=== PATIENT | male | born 1945 | race Caucasian/White ===

== ENCOUNTER → 2019-10-04 | Outpatient (CLI) | payer OTHER, BC ==
[~2019-10-04] VITALS: Ht 180.3 cm; Wt 94.8 kg
[~2019-10-04] MED LIST: ACTOS 45 MG45 M1 PO; AZOPT5 ML OPHTHALMIC; B12INJ PO; BACTROBAN NASAL1 GM; COUMADIN PO; COZAAR 25MG TAB25 M1 PO; FERREX 150150 MG PO; FISH OIL + D31 EACH PO; FISHOIL PO; GLUCOPHAGE XR500 MG PO; GLUCOPHAGE500 MG PO; GLUCOTROL5 MG PO; GLUCOVANCE 5-51 EACH; GLUCOVANCE 5-51 EACH PO; HYDROCODONE-AP1 EA10 PO; JANUVIA100 MG PO; LATANOPROST 0.2.5 ML OPHTHALMIC; LO-DOSE ASPIRIN81 M1 PO; LORTAB 5 MG/5001 TAB; METFORMIN HCL500 MG PO; NORCO 5-325 TA1 EACH PO; PERCOCET 5-3251 EACH PO; PRADAXA150 MG PO; PRAVACHOL80 MG PO; TOPROL XL50 MG PO; VITAMIN C + RO500 MG PO; VITAMIN D31000 UNI2 PO; VITCB500GO PO; ZOFRAN4 MG PO
[2019-10-04 07:25] VITALS: BP 125/87
--- NOTE | 2019-10-04 08:09 | EKG ---
[facility] [place] [address] ELECTROCARDIOGRAM REPORT Name: SALMA ERNST Room #: REG [facility]#: [id number] Admission: 10/04/19 Attend Phys: Blue Wright MD, Discharge: Date of : 41 Report #: [id number] THIS REPORT FOR: cc: Julio Sandy MD, Christopher B. MD Lundgren,Blue Johns MD [facility] ~ THIS REPORT FOR: //name// [facility] Test Date: 2019-10-04 Test Time: 07:22:39 Pat Name: SALMA ERNST Department: Room: Gender: Fisher Hoop Net: Rachel TERRAZAS : 1945 Requested By: Blue Wright Order Number: [id number] MD: Blue Wright Measurements Intervals Jeddo Rate: 87 P: [place]: QRS: 174 QRSD: 136 T: -21 QT: 437 QTc: 526 Interpretive Statements Atrial fibrillation RBBB and LPFB Compared to ECG 07/17/2011 07:11:17 Left posterior fascicular block now present Right bundle-branch block now present Myocardial infarct finding no longer present Electronically Signed On 10-04-2019 8:07:56 CDT by Blue Wright [email or web address] <ELECTRONICALLY SIGNED> By: Blue Wright MD, [facility] 10/04/19806 1 1 Blue Wright MD, FAC /EPI
--- NOTE | 2019-10-04 09:32 | CATHLAB ---
[facility] [place] [address] INVASIVE PROCEDURE REPORT Name: SALMA ERNST Room #: REG SARAH Tahir.#: [id number] Admission: 10/04/19 Attend Phys: Blue Wright MD, Discharge: Date of : 41 Report #: [id number] THIS REPORT FOR: cc: Julio Sandy MD, Christopher B. MD Lundgren, Craig H. MD [facility] ~ APPROVED REPORT Study performed: 10/04/2019 08:00:10 Patient Details Patient Status: Out-Patient Room #: The patient is a 74 year-old male Event Personnel Blue Wright Bean Roaster, Jackie Castillo RTRachel, NOVELTY TWISTER TENDER Monitor, Leila Jensen RN RN, Kateryna Hernandes Procedures Performed Art Access - R femoral artery* Left Heart Cath Coronaries, Bypass Grafts [id number] LHCCORCABG 10597 Initial Mod Sed Same Phys/QHP Gr5y [id number] 51504 Mod Sed Same Phys/QHP Ea 278040 Hemostasis w/ Mynx Indication Positive stress test Procedure Narrative The Right Groin^ was infiltrated with 1% Lidocaine subcutaneous anesthesia. A PINNACLE 6FR Sheath #[id number] sheath was inserted into the RFA^. Coronary angiography was performed using coronary diagnostic catheters. The right coronary system was accessed and visualized with a JR4 catheter. The left coronary system was accessed and visualized with a JL4 catheter. The left ventricle was accessed and visualized with a angled pigtail catheter. Left ventricular/Aortic Valve gradient assessed via catheter pullback. Left ventriculogram was performed in 30 degree projection. Closure device was deployed with a 6 Fr MYNXGRIP 6/7F #[id number]. The patient tolerated the procedure well and there were no complications associated with the procedure. There was no hematoma. Intraoperative Conscious Sedation Sedation start time: 08:12 Case end Time: [facility] [place] [address] [place] [address] INVASIVE PROCEDURE REPORT Name: SALMA ERNST Room #: REG Amy#: [id number] Admission: 10/04/19 Attend Phys: Blue Wright, Discharge: Date of : 41 Report #: [id number] 08:57 Fentanyl 50 mcg Versed 1 mg Fluoro Time: 6.25 minutes Dose: DAP 9750.00 cGycm2 1181 mGy Contrast Type and Amount: Omnipaque 205 ml Coronary Angiography The patient's coronary anatomy is right dominant. Diagnostic Cath Left Main Mild distal left main plaquing of 20% LAD Occluded mid LAD Widely patent left internal mammary to the LAD Diagonal 1 Widely patent vein graft to the first diagonal branch with good runoff into the diagonal system, jump sequence to the marginal branch. Circumflex 70% ostial circumflex stenosis Occluded mid circumflex OM1 Distally rising marginal branch filled by the sequential vein graft to the diagonal, marginal branch system. Right Coronary Mild diffuse disease throughout the right coronary 99% distal right coronary stenosis R PDA Widely patent vein graft to the posterior descending with a jump sequence to the posterior lateral branch Large posterior descending filled by the vein graft with excellent runoff into a large posterior descending. RPLV There is a tertiary branch of the posterior lateral artery not completely protected by this jump conduit. This was a small calibered vessel, some antegrade and retrograde filling. Very similar appearance to pre-CABG anatomy (2012). Left Ventriculography The left ventricle is normal in size with normal contractility. The left ventricular ejection fraction is estimated to be 50-55%. Left ventricular wall motion abnormalities are not present. There is no mitral insufficiency. Hemodynamics The aortic pressure is 128/75 mmHg with a mean of 96 mmHg. The left ventricular pressure is 126/9 mmHg with a mean of mmHg. The left ventricular end diastolic pressure is 25 mmHg. Conclusion 1. Normal global and regional left ventricular systolic function. Ejection fraction 50 to 55%. [facility] [address] [place] [address] INVASIVE PROCEDURE REPORT Name: SALMA ERNST Room #: REG [facility]#: [id number] Admission: 10/04/19 Attend Phys: Blue Wright, Discharge: Date of : 41 Report #: [id number] 2. Severe multivessel coronary disease 3. Patent left internal mammary to the LAD. 4. Patent sequential vein graft from the first diagonal with jump sequence to a distal a rising marginal branch 5. Patent sequential vein graft to the posterior descending and posterolateral branches. RCA dominant 6. Severe disease in a distal, tertiary posterolateral branch, not completely protected by the bypass conduit, similar to pre-CABG (2011) anatomy Continued pharmacologic therapy and aggressive risk factor modification recommend <ELECTRONICALLY SIGNED> By: Blue Wright MD, [facility] 10/04/19929 9 9 Blue Wright MD, FAC /INF
== END | disposition home or self-care (01) ==
LOC: CATH 06:49
DX: R94.39 Abnormal result of other cardiovascular function study (principal); I25.810 Atherosclerosis of coronary artery bypass graft(s) without angina pectoris; I10 Essential (primary) hypertension; E11.9 Type 2 diabetes mellitus without complications; I48.91 Unspecified atrial fibrillation; E78.5 Hyperlipidemia, unspecified; I25.2 Old myocardial infarction; H40.9 Unspecified glaucoma; Z95.1 Presence of aortocoronary bypass graft; Z98.890 Other specified postprocedural states; Z79.899 Other long term (current) drug therapy; Z79.01 Long term (current) use of anticoagulants; Z96.653 Presence of artificial knee joint, bilateral; Z90.49 Acquired absence of other specified parts of digestive tract; Z86.73 Personal history of transient ischemic attack (TIA), and cerebral infarction without residual deficits; Z79.82 Long term (current) use of aspirin; Z88.2 Allergy status to sulfonamides

== ENCOUNTER → 2020-09-24 | Outpatient (CLI) | payer OTHER, BC | LOC: SJCVC 10:28 | PROVIDERS: ATTEND Internal Medicine | DX: R94.31 Abnormal electrocardiogram [ECG] [EKG] (principal); I45.10 Unspecified right bundle-branch block; I25.10 Atherosclerotic heart disease of native coronary artery without angina pectoris; I48.21 Permanent atrial fibrillation; I65.23 Occlusion and stenosis of bilateral carotid arteries; I10 Essential (primary) hypertension; E78.5 Hyperlipidemia, unspecified; E11.9 Type 2 diabetes mellitus without complications; I25.2 Old myocardial infarction; Z90.49 Acquired absence of other specified parts of digestive tract; Z95.1 Presence of aortocoronary bypass graft; Z98.890 Other specified postprocedural states; Z88.2 Allergy status to sulfonamides; Z79.84 Long term (current) use of oral hypoglycemic drugs; Z79.82 Long term (current) use of aspirin; Z79.899 Other long term (current) drug therapy; Z86.73 Personal history of transient ischemic attack (TIA), and cerebral infarction without residual deficits; Z82.49 Family history of ischemic heart disease and other diseases of the circulatory system ==

== ENCOUNTER → 2021-03-26 | Outpatient (CLI) | payer OTHER, BC | LOC: SJCVCIMAG 08:00 | PROVIDERS: ATTEND Internal Medicine | DX: I08.8 Other rheumatic multiple valve diseases (principal); R94.31 Abnormal electrocardiogram [ECG] [EKG]; I25.10 Atherosclerotic heart disease of native coronary artery without angina pectoris; I49.1 Atrial premature depolarization; I48.21 Permanent atrial fibrillation; I65.23 Occlusion and stenosis of bilateral carotid arteries; I10 Essential (primary) hypertension; E78.5 Hyperlipidemia, unspecified; E11.9 Type 2 diabetes mellitus without complications; Z95.1 Presence of aortocoronary bypass graft; Z88.2 Allergy status to sulfonamides; Z79.82 Long term (current) use of aspirin; Z79.84 Long term (current) use of oral hypoglycemic drugs; Z79.899 Other long term (current) drug therapy ==